=== PATIENT | male | born 1995 | race Caucasian/White ===

== ENCOUNTER 2017-01-23 00:37 | Emergency (ER) | payer MEDICAID, OTHER ==
[~2017-01-23] VITALS: Ht 175.3 cm; Wt 62.0 kg
[~2017-01-23 00:37] MED LIST: ALBU1AER INH; MEDR4PAK3 PO; ZITH250T PO; [UNRECOGNIZED DRUG - CODE] TD
[2017-01-23 00:40] VITALS: BP 128/60; PULSE 62; RESP 16; TEMP 98.7; O2SAT 99
--- NOTE | 2017-01-23 01:03 | PD ---
HPI Chief Complaint: Injury Time Seen by Provider: 01:03 Travel History International Travel<30 days: No Contact w/Intl Traveler<30days: No Traveled to known affect area: No History of Present Illness HPI 21-year-old male presents to emergency department for evaluation a left ankle pain. Patient states that he rode his bike a long distance yesterday and helped move today and believes that he may have injured something. States the pain is on the dorsal aspect of the left ankle. It is a 8 out of 10, constant, exacerbated with touch or movement. Patient states the pain is causing him to not be able to walk. Denies any other symptoms at this time. PFSH Past Medical History Asthma: Yes Respiratory: Yes (asthma) Integumentary: Yes (ACNE) Immunizations Current: Yes Past Surgical History Oral Surgery: Yes (WISDOM TEETH REMOVED) Social History Alcohol Use: No Tobacco Use: No Substance Use: No Allergies-Medications (Allergen,Severity, Reaction): Coded Allergies: No Known Allergies (Unverified , 02/24/14) Reported Meds & Prescriptions Reported Meds & Active Scripts Active Ibuprofen 600 Mg Tab 600 Mg PO Q8H PRN Review of Systems Except as stated in HPI: all other systems reviewed are Neg Physical Exam Narrative GENERAL: Well-nourished, well-developed male patient in no acute distress SKIN: Focused skin assessment warm/dry. HEAD: Normocephalic. EYES: No scleral icterus. No injection or drainage. NECK: Supple, trachea midline. No JVD or lymphadenopathy. MUSCULOSKELETAL: No cyanosis, or edema. Tenderness with palpation of the anterior aspect of the left ankle. No deformity. No significant swelling. Distal pulses are palpable. Cap refill is within normal limits. BACK: Nontender without obvious deformity. No CVA tenderness. Data Data Last Documented VS Vital Signs Date Time Temp Pulse Resp B/P Pulse Ox O2 Delivery O2 Flow Rate FiO2 01/23/17 00:40 98.7 62 16 128/60 99 Room Air Orders Ankle, Complete ([id number]) (01/23/17 ) Ketorolac Inj (Toradol Inj) (01/23/17 01:15) Splint Or Brace Apply/Monitor (01/23/17 02:05) Ibuprofen (Motrin) (01/23/17 02:15) MDM Medical Decision Making Medical Screen Exam Complete: Yes Emergency Medical Condition: Yes Medical Record Reviewed: Yes Differential Diagnosis Tendinitis versus contusion versus sprain versus fracture Narrative Course 21-year-old male presents to the emergency department for evaluation of left ankle pain. Physical exam is reassuring. X-ray imaging is without acute bony abnormality. Symptoms are more consistent with a tendinitis and an ankle sprain. Patient was provided a brace for support. Encouraged to follow-up with primary care provider. He agrees to return immediately with any acute worsening of symptoms. Diagnosis Primary Impression: Left ankle pain Qualified Code: M25.572 - Acute left ankle pain Referrals: Primary Care Physician Patient Instructions: Ankle Exercises (GEN), General Instructions Departure Forms: Tests/Procedures, Work Release Enter return to work date: Jan 25, 2017 Additional Instructions: ICE 20 MIN ON/ 20 MIN OFF ELEVATE TO REDUCE PAIN BRACE FOR SUPPORT FOLLOW UP WITH A PRIMARY CARE PROVIDER RETURN TO ED WITH ACUTE WORSENING OF SYMPTOMS Med/Other Pt SpecificInfo: Prescription(s) given Scripts Ibuprofen 600 Mg [id number] Mg PO Q8H PRN (PAIN) #30 TAB Ref 0 Prov:Kenna Perez 01/23/17 Disposition: 01 DISCHARGE HOME Condition: Stable Kenna Perez Jan 23, 2017 01:03
[2017-01-23] MEDS ORDERED: KETOROLAC TROMETHAMINE 60 MG/2 ML (IM) VIAL IM ONE (01:15)
--- NOTE | 2017-01-23 01:40 | RADRPT ---
EXAM DATE/TIME: 01/23/2017 01:25 [facility] COMPARISON: No previous studies available for comparison. INDICATIONS : Ankle pain. Hurt ankle moving furniture. MEDICAL HISTORY : None. SURGICAL HISTORY : None. ENCOUNTER: Initial ACUITY: 1 day PAIN SCORE: 5/10 LOCATION: Left ankle FINDINGS: Three view exam was performed of the left ankle. The bony structures are in normal alignment. No ev idence of fracture, dislocation, or soft tissue swelling. The ankle mortise is intact. No radiopaqu e foreign bodies are seen. Bony mineralization is normal. CONCLUSION: Negative trauma study. Stalin Bill MD on January 23, 2017 at 1:39 Board Certified Radiologist. This report was verified electronically.
[2017-01-23] MEDS ORDERED: IBUP-232 PO (02:08)
[2017-01-23] MEDS ORDERED: IBUPROFEN 600 MG TAB PO ONE (02:15)
== END 2017-01-23 02:43 | disposition home or self-care (01) ==
LOC: NEPD 00:37
DX: M25.572 Pain in left ankle and joints of left foot (principal); X50.3XXA Overexertion from repetitive movements, initial encounter; Y93.55 Activity, bike riding
CPT/HCPCS: 73610; 99283; E0113; L1906